=== PATIENT | female | born 1940 | race Caucasian/White ===

== ENCOUNTER 2020-06-14 12:56 | Emergency (ER) | payer MEDICARE, BC ==
--- NOTE | 2020-06-14 13:08 | ED Physician Documentation ---
History of Present Illness - Stated complaint Stated Complaint: CHEST TIGHTNESS, RHR, DIZZY - Additonal information Additional information: 79-year-old female presents to the emergency department for 3 weeks of intermittent chest palpitations and chest tightness. This began shortly after her passed in late March. She is currently visiting her daughter. Patient typically lives in [place]. She reports that she feels lightheaded but has not had any syncope slurred speech arm or leg weakness. She denies that the palpitations or chest tightness are worse with exertion. She denies leg swelling, abdominal pain, nausea vomiting or diarrhea. No dysuria. She does not have any unilateral leg swelling. At times in the past she has been able to get her heart rate to slow by doing breathing exercises. She denies any previous coronary artery disease history. She does have a history of hypertension and takes lisinopril. She was recently transitioned to that from metoprolol. Non-smoker. Review of Systems Constitutional: reports: Reviewed and negative Eyes: reports: Reviewed and negative Ears: reports: Reviewed and negative Cardiac: reports: Chest pain / pressure, Palpitations. denies: Pedal edema, Calf pain Respiratory: reports: Dyspnea. denies: Cough, Hemoptysis, Wheezing GI: reports: Reviewed and negative : reports: Reviewed and negative Skin: reports: Reviewed and negative Musculoskeletal: reports: Back pain (thoracic compression fracture) Neurologic: denies: Generalized weakness, Difficulty speaking, Near syncope, Syncope, Seizure, Confused, Altered mental status, Headache, LOC Psychiatric: reports: Reviewed and negative Endocrine: reports: Reviewed and negative PD PAST MEDICAL HISTORY - Present Medications Home Medications: Ambulatory Orders Medication Instructions Recorded Confirmed Apixaban [Eliquis] 0 mg PO BID #60 tablet 06/14/20 Raul/D3/Mag11/Zinc/Certified Pest Control Technician/Joon/Bor 1 each PO DAILY 06/14/20 06/14/20 [Caltrate 600+D Plus Tablet] Lisinopril [Prinivil] 5 mg PO DAILY 06/14/20 06/14/20 Metoprolol Tartrate 50 mg PO BID #60 tablet 06/14/20 - Allergies Allergies/Adverse Reactions: Allergies Allergy/AdvReac Type Severity Reaction Status Date / Time cefuroxime [From Ceftin] Allergy Itching Verified 06/14/20 13:30 PD ED PE EXPANDED - General General: Alert, No acute distress, Well developed/nourished - HEENT HEENT: PERRL, EOMI - Neck Neck: Supple w/out meningeal sx. No: JVD present, Adenopathy, Thyroid enlarged / mass - Cardiac Cardiac: Tachy, Irregularly irregular, Radial strong equal, Femoral strong equal, Cap refill < 2 sec. No: Murmur Present - Respiratory Respiratory: Clear to ausultation annabella. No: Distress, Labored - Abdomen Abdomen: Normal Bowel sounds. No: Tender to palpation, Rebound, Guarding - Derm Derm: Normal color, Warm and dry. No: Rash - Extremities Extremities: Normal. No: Pedal edema bilateral - Neuro Neuro: Alert and Oriented X 3, CNII-XII intact, Cerebellar nl, Normal gait, Normal finger nose, Normal speech - GCS Eye Opening: Spontaneous Motor: Obeys Commands Verbal: Oriented Total: 15 Results - Vitals Vitals: Vital Signs - 24 hr 06/14/20 06/14/20 06/14/20 13:09 13:31 14:15 Temperature 37.5 C Heart Rate 155 H 106 H 95 Respiratory 18 20 17 Rate Blood Pressure 133/92 H 98/64 130/69 O2 Saturation 95 94 95 06/14/20 14:30 Temperature Heart Rate 94 Respiratory 16 Rate Blood Pressure 133/84 H O2 Saturation 94 Oxygen O2 Source Room air - EKG (time done) 1301 Rate: Rate (enter#) (138) Rhythm: Atrial fibrillation Intervals: Normal NC, RBBB QRS: Normal Ischemia: Normal ST segments Compare to prior EKG: Old EKG unavailable Computer interpretation: Agree with computer - Labs Labs: Laboratory Tests 06/14/20 06/14/20 06/14/20 13:15 13:15 13:15 WBC 5.8 RBC 4.25 Hgb 13.9 Hct 41.0 MCV 96.5 MCH 32.7 H MCHC 33.9 RDW 12.9 Plt Count 166 MPV 10.4 Neut # (Auto) 3.3 Lymph # (Auto) 1.8 Dickinson # (Auto) 0.5 Eos # (Auto) 0.2 Baso # (Auto) 0.0 Absolute Nucleated RBC 0.00 Nucleated RBC % 0.0 Sodium 140 Potassium 3.8 Chloride 106 Carbon Dioxide 25 Anion Gap 9.0 BUN 19 Creatinine 0.7 Estimated GFR (MDRD) 81 L Glucose 177 H Calcium 9.2 Total Bilirubin 1.1 H AST 19 ALT 20 Alkaline Phosphatase 70 Troponin I High Sens 9.5 B-Natriuretic Peptide Total Protein 6.3 L Albumin 3.8 Globulin 2.5 Albumin/Globulin Ratio 1.5 Lipase 25 TSH 06/14/20 06/14/20 13:15 13:15 WBC RBC Hgb Hct MCV MCH MCHC RDW Plt Count MPV Neut # (Auto) Lymph # (Auto) Dickinson # (Auto) Eos # (Auto) Baso # (Auto) Absolute Nucleated RBC Nucleated RBC % Sodium Potassium Chloride Carbon Dioxide Anion Gap BUN Creatinine Estimated GFR (MDRD) Glucose Calcium Total Bilirubin AST ALT Alkaline Phosphatase Troponin I High Sens B-Natriuretic Peptide 478 H Total Protein Albumin Globulin Albumin/Globulin Ratio Lipase TSH 1.19 - Rads (name of study) CXR Radiology: Final report received (Normal for age, source of current symptoms is not seen) PD MEDICAL DECISION MAKING - ED course ED course: 79-year-old female presents to the emergency department for evaluation of intermittent chest pressure and palpitations for 3 weeks. She is noted to be in atrial fib with a heart rate variable between 130 and 170. She denies any previous hx of atrial fibrillation or CAD 1320: Patient was initially given 10 mg of diltiazem and it very briefly slowed her heart rate to about 120 before rising again to 160. We will repeat with 20 mg of diltiazem 1339: pt has received 20 mg diltiazem. HR now variable in the 90's, atrialfibrillation 1420: Pt is a CHADS2 risk score of 2. She likely needs to be started on anticoagulation and rate control. I am trying to contact her mechanical maintenance foreman in [place]. Pt plans to remain on [facility] until September 1514: I have spoken with patient's mechanical maintenance foreman Dr. Conrado Thomas in [place]. He reports to me that her last echocardiogram in March 2018 was essentially normal. There was no valvular disease or significant regurgitation seen. We discussed this ED visit. At this time we will start her on anticoagulation El iquis 5 mg twice daily as well as metoprolol 50 mg twice daily. I have discussed this new finding of atrial fib with the patient and the need to start anticoagulation. I did spend time discussing the risks of anticoagulation.Patient reports that she is very nervous to begin anticoagulation however based on her chads 2 score she is at moderate risk for adverse events related to thrombi.Patient reports to me that she will try and schedule an appointment in a few weeks with her mechanical maintenance foreman in [place] and fly back to see him before returning here to the [place]. We discussed that she should return to the emergency department for any accelerated heart rates, slurred speech droopy face, uncontrolled bleeding or blunt trauma, Chest pain, or shortness of breath. Departure - Departure Disposition: 01 Home, Self Care Clinical Impression: Atrial fibrillation Qualifiers: Atrial fibrillation type: unspecified Qualified Code(s): I48.91 - Unspecified atrial fibrillation Condition: Stable Record reviewed to determine appropriate education?: Yes Instructions: Atrial Fibrillation Dc, Stroke Prevent Live W Atrial Fib Prescriptions: Apixaban [Eliquis] 0 mg PO BID #60 tablet Metoprolol Tartrate 50 mg PO BID #60 tablet Comments: You were found today to have a new abnormal heart rhythm called atrial fibrillation. This type of heart rhythm puts you at risk to develop abnormal clots in the heart that can travel to the brain and cause stroke. In addition to that atrial fibrillation if left uncontrolled can cause heart failure and heart attacks. You need to start a new medication to control your heart rate. This is called Metroprolol. You are to take it twice a day. In order to prevent clots from forming we are starting you on a medication called Eliquis. You also take this twice a day. Because of the Eliquis you are at risk to have uncontrolled bleeding events if you fall and hit your head, cut yourself or have any type of surgical procedure. If you notice that you have blood in your stool or urine or have uncontrolled bleeding please return immediately to the emergency department. Please monitor your blood pressure and heart rate at home. If you find that your heart rate is greater than 120 or you feel faint, dizzy, short of breath or have chest pain please return to the emergency department. It is very important that you follow-up with a primary doctor or your mechanical maintenance foreman within the next 30 days. Your medications will need to be reevaluated and renewed. I do recommend that if you are able to see your mechanical maintenance foreman in [place] that you do that as soon as possible
[2020-06-14] MEDS ORDERED: DILTIAZEM 50 MG/10 ML VIAL IVP ONE (13:16)
[2020-06-14 13:23] LABS: BASOPHILS % (AUTO) 0.7 %; EOSINOPHILS # (AUTO) 0.2 10^3/uL (0.0-0.7); EOSINOPHILS % (AUTO) 2.8 %; HGB - HEMOGLOBIN 13.9 g/dL (12.0-16.0); LYMPHOCYTES # (AUTO) 1.8 10^3/uL (1.5-3.5); LYMPHOCYTES % (AUTO) 31.1 %; MEAN CORPUSCULAR HEMOGLOBIN 32.7 pg (27.0-31.0); MEAN CORPUSCULAR HGB CONC 33.9 g/dL (32.0-36.0); MEAN CORPUSCULAR VOLUME 96.5 fL (81.0-99.0); MEAN PLATELET VOLUME 10.4 fL (7.9-10.8); MONOCYTES # (AUTO) 0.5 10^3/uL (0.0-1.0); MONOCYTES % (AUTO) 8.6 %; NEUTROPHILS # (AUTO) 3.3 10^3/uL (1.5-6.6); NEUTROPHILS % (AUTO) 56.5 %; PLT - PLATELET COUNT 166 10^3/uL (130-450); RED BLOOD COUNT 4.25 10^6/uL (4.20-5.40); RED CELL DISTRIBUTION WIDTH 12.9 % (12.0-15.0); WHITE BLOOD COUNT 5.8 x10^3/uL (4.8-10.8)
[2020-06-14] MEDS ORDERED: DILTIAZEM 50 MG/10 ML VIAL IVP STA (13:25)
[2020-06-14 13:36] LABS: ALBUMIN 3.8 g/dL (3.2-5.5); ALBUMIN/GLOBULIN RATIO 1.5 (1.0-2.2); BILIRUBIN,TOTAL 1.1 mg/dL (0.2-1.0); CALCIUM 9.2 mg/dL (8.5-10.3); CREATININE 0.7 mg/dL (0.4-1.0); TOTAL PROTEIN 6.3 g/dL (6.7-8.2)
--- NOTE | 2020-06-14 13:53 | XRAY Report ---
PROCEDURE: Chest 1 View X-Ray INDICATIONS: Chest Pain TECHNIQUE: One view of the chest was acquired. COMPARISON: FINDINGS: Surgical changes and devices: None. Lungs and pleura: No pleural effusions or pneumothorax. Lungs are clear. Mediastinum: Mediastinal contours appear normal. Heart size is normal. Bones and chest wall: No suspicious bony lesions. Overlying soft tissues appear unremarkable. IMPRESSION: Normal for age, source of current symptoms is not seen. Reviewed by: Pablo Matson MD on 06/14/2020 1:52 PM PDT Approved by: Pablo Matson MD on 06/14/2020 1:52 PM PDT Station ID: [id number]
[2020-06-14] MEDS ORDERED: METOPROLOL TARTRATE 50 MG TABLET PO STA (15:24)
[2020-06-14] MEDS ORDERED: APIXABAN 5 MG TABLET PO STA (15:25)
[2020-06-14 15:35] VITALS: BP 131/94
== END 2020-06-14 16:10 | disposition home or self-care (01) ==
LOC: ED 12:56
DX: I48.91 Unspecified atrial fibrillation (principal); I10 Essential (primary) hypertension
CPT/HCPCS: 36415; 71045; 80053; 83690; 83880; 84443; 84484; 85025; 93005; 96374; 99284; A9270